=== PATIENT | male | born 1970 | race Caucasian/White ===

== ENCOUNTER 2017-03-29 07:05 | Observation (INO) | payer BC, OTHER ==
[~2017-03-29] VITALS: Ht 172.7 cm; Wt 103.7 kg
[2017-03-29 07:16] LABS: BASOPHILS % (AUTO) 0 % (0-10); EOSINOPHILS # (AUTO) 0.1 10^3/uL (0.0-0.3); EOSINOPHILS % (AUTO) 1 % (0-10); LYMPHOCYTES # (AUTO) 2.2 X 10^3 (1.0-4.0); LYMPHOCYTES % (AUTO) 23 % (12-44); MEAN CORPUSCULAR HEMOGLOBIN 31 PG (25-34); MEAN CORPUSCULAR HGB CONC 35 G/DL (32-36); MEAN CORPUSCULAR VOLUME 90 FL (80-99); MEAN PLATELET VOLUME 10.9 FL (7.4-10.4); MONOCYTES # (AUTO) 1.2 X 10^3 (0.0-1.0); MONOCYTES % (AUTO) 12 % (0-12); NEUTROPHILS # (AUTO) 6.3 X 10^3 (1.8-7.8); NEUTROPHILS % (AUTO) 64 % (42-75); PLATELET COUNT 196 10^3/uL (130-400); RED BLOOD COUNT 4.64 10^6/uL (4.35-5.85); RED CELL DISTRIBUTION WIDTH 12.7 % (10.0-14.5); WHITE BLOOD COUNT 9.8 10^3/uL (4.3-11.0)
--- NOTE | 2017-03-29 07:16 | ED Chest Pain ---
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 [place] IN [place]--USED TO SEE DR. BARBOSA, BUT RECENTLY SWITCHED Allergies and Home Medications Allergies Coded Allergies: No Known Drug Allergies (Unverified , 03/29/17) Home Medications Amlodipine Besylate 5 Mg Tablet, 5 MG PO DAILY, (Reported) Lisinopril 40 Mg Tablet, 40 MG PO DAILY, (Reported) [Abilify] , (Reported) Review of Systems Constitutional: see HPI, diaphoresis (CLAMMY AND HOT), dizziness EENTM: No Symptoms Reported Respiratory: See HPI, Shortness of Air Cardiovascular: See HPI, Chest Pain, Edema, Lightheadedness, Denies Palpitations, Denies Syncope Gastrointestinal: No Symptoms Reported Genitourinary: No Symptoms Reported Musculoskeletal: no symptoms reported Skin: no symptoms reported Psychiatric/Neurological: No Symptoms Reported Endocrine: No Symptoms Reported Hematologic/Lymphatic: No Symptoms Reported Past Eillxvf-Sfgiif-Iidwab Hx Patient Social History Alcohol Use: Past History (HISTORY OF ABUSE, NONE SINCE 2006) Recreational Drug Use: Yes (METH--DENIES IV USE, OR RECENT USE) Smoking Status: Former Smoker (SMOKED 2 PPD, QUIT 09/2016, NOW CHEWS) Type Used: Cigarettes, Smokeless Tobacco Surgeries HX Surgeries: No Respiratory Hx Respiratory Disorders: No Cardiovascular Hx Cardiac Disorders: Yes Cardiac Disorders: Hypertension Neurological Hx Neurological Disorders: No Genitourinary Hx Genitourinary Disorders: No Gastrointestinal Hx Gastrointestinal Disorders: No Musculoskeletal Hx Musculoskeletal Disorders: No Endocrine Hx Endocrine Disorders: No HEENT HX ENT Disorders: No Cancer Hx Cancer: No Psychosocial Hx Psychiatric Problems: Yes Behavioral Health Disorders: Anxiety, Bipolar Integumentary HX Skin/Integumentary Disorder: No Blood Transfusions Hx Blood Disorders: No Physical Exam Vital Signs Vital Sign - Last 12Hours 03/29/17 07:05 Temp 97.2 Pulse 84 Resp 18 B/P (MAP) 144/89 Pulse Ox 98 O2 Delivery Nasal Cannula O2 Flow Rate 2.00 Capillary Refill : General Appearance: No Apparent Distress, WD/WN Neck: Full Range of Motion, Normal Inspection, Non Tender, Supple, No Carotid Bruit, No JVD Respiratory: Chest Non Tender, Normal Breath Sounds, No Accessory Muscle Use, No Respiratory Distress Cardiovascular: Regular Rate, Rhythm, No JVD, No Murmur, Normal Peripheral Pulses Gastrointestinal: Normal Bowel Sounds, No Organomegaly, No Pulsatile Mass, Non Tender, Soft Extremity: Normal Capillary Refill, Normal Range of Motion, Non Tender, No Calf Tenderness, Pedal Edema (TRACE BILATERALLY) Neurologic/Psychiatric: Alert, Oriented x3, No Motor/Sensory Deficits, Normal Mood/Affect, 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 as Tested Skin: Normal Color, Warm/Dry, Tattoos/Piercings (MULTIPLE TATTOOS) Progress/Results/Core Measures Results/Orders Lab Results Laboratory Tests Test 03/29/17 07:10 Range/Units White Blood Count 9.8 4.3-11.0 10^3/uL Red Blood Count 4.64 4.35-5.85 10^6/uL Hemoglobin 14.4 13.3-17.7 G/DL Hematocrit 42 40-54 % Mean Corpuscular Volume 90 80-99 FL Mean Corpuscular Hemoglobin 31 25-34 PG Mean Corpuscular Hemoglobin Concent 35 32-36 G/DL Red Cell Distribution Width 12.7 10.0-14.5 % Platelet Count 196 130-400 10^3/uL Mean Platelet Volume 10.9 H 7.4-10.4 FL Neutrophils (%) (Auto) 64 42-75 % Lymphocytes (%) (Auto) 23 12-44 % Monocytes (%) (Auto) 12 0-12 % Eosinophils (%) (Auto) 1 0-10 % Basophils (%) (Auto) 0 0-10 % Neutrophils # (Auto) 6.3 1.8-7.8 X 10^3 Lymphocytes # (Auto) 2.2 1.0-4.0 X 10^3 Monocytes # (Auto) 1.2 H 0.0-1.0 X 10^3 Eosinophils # (Auto) 0.1 0.0-0.3 10^3/uL Basophils # (Auto) 0.0 0.0-0.1 10^3/uL Prothrombin Time 12.8 12.2-14.7 SEC INR Comment 1.0 0.8-1.4 Activated Partial Thromboplast Time 26 24-35 SEC Sodium Level 139 135-145 MMOL/L Potassium Level 3.9 3.6-5.0 MMOL/L Chloride Level 104 98-107 MMOL/L Carbon Dioxide Level 23 21-32 MMOL/L Anion Gap 12 5-14 MMOL/L Blood Urea Nitrogen 26 H 7-18 MG/DL Creatinine 1.03 0.60-1.30 MG/DL Estimat Glomerular Filtration Rate > 60 BUN/Creatinine Ratio 25 Glucose Level 109 H 70-105 MG/DL Calcium Level 9.7 8.5-10.1 MG/DL Magnesium Level 1.9 1.8-2.4 MG/DL Total Bilirubin 0.3 0.1-1.0 MG/DL Aspartate Amino Transf (AST/SGOT) 14 5-34 U/L Alanine Aminotransferase (ALT/SGPT) 16 0-55 U/L Alkaline Phosphatase 57 40-136 U/L Total Creatine Kinase 118 30-200 U/L Creatine Kinase MB 1.1 <6.6 NG/ML Troponin I < 0.30 <0.30 NG/ML B-Type Natriuretic Peptide < 10.0 <100.0 PG/ML Total Protein 7.1 6.4-8.2 GM/DL Albumin 4.2 3.2-4.5 GM/DL Amylase Level 63 25-125 U/L Lipase 19 8-78 U/L My Orders Orders - YG GARZON DO Ekg Tracing (03/29/17 07:06) Amylase (03/29/17 07:10) Cbc With Automated Diff (03/29/17 07:10) Comprehensive Metabolic Panel (03/29/17 07:10) Creatine Kinase (03/29/17 07:10) Creatine Kinase Mb (03/29/17 07:10) Lipase (03/29/17 07:10) Partial Thromboplastin Time (03/29/17 07:10) Protime With Inr (03/29/17 07:10) Troponin I (03/29/17 07:10) Chest 1 View, Ap/Pa Only (03/29/17 07:10) O2 (03/29/17 07:10) BNP (03/29/17 07:10) Monitor-Rhythm Ecg Trace Only (03/29/17 07:10) Magnesium (03/29/17 07:10) Ct Angio Chest W (03/29/17 07:50) Iohexol Injection (Omnipaque 350 Mg/Ml 1 (03/29/17 08:15) Sodium Chloride Flush (Catheter Flush Sy (03/29/17 08:15) Ns (Ivpb) (Sodium Chloride 0.9% Ivpb Bag (03/29/17 08:15) Medications Given in ED Current Medications Medications Dose Ordered Sig/Alessia Route Start Time Stop Time Status Last Admin Dose Admin Iohexol 125 ml ONCE ONCE IV 03/29/17 08:15 03/29/17 08:16 DC 03/29/17 08:13 125 ML Sodium Chloride 10 ml NEEDED PRN IV 03/29/17 08:15 03/29/17 09:37 DC 03/29/17 08:13 10 ML Sodium Chloride 100 ml ONCE ONCE IV 03/29/17 08:15 03/29/17 08:16 DC 03/29/17 08:13 80 ML Vital Signs/I&O Vital Sign - Last 12Hours 03/29/17 03/29/17 03/29/17 07:05 07:05 07:49 Temp 97.2 Pulse 84 66 Resp 18 18 B/P (MAP) 144/89 132/84 Pulse Ox 98 98 O2 Delivery Nasal Cannula Room Air O2 Flow Rate 2.00 Progress Note : Progress Note NO SYMPTOMS DURING ER STAY. ECG Initial ECG Impression Time: 07:11 Initial ECG Rate: 80 Initial ECG Rhythm: Normal Sinus Initial ECG Impression: Nonspecific Changes (BORDERLINE INFERIOR Q WAVES) Initial ECG Comparisson: No Previous ECG Available Diagnostic Imaging Comments CXR--NO ACUTE PROCESS, PER RADIOLOGIST REPORT @ 0740 CT CHEST ANGIOGRAM--NO ACUTE PROCESS, PER RADIOLOGIST REPORT @ 0840 Reviewed: Reviewed by Me Departure Communication Progress Notes 0840--ATTEMPTING TO CONTACT DR. CARR, HOSPITALIST HEALTH ASSESSMENT AND TREATMENT TEACHER, NO ANSWER ON CELL. UNABLE TO LEAVE MESSAGE 0840--SPOKE WITH DR. COLE, [employer] ASSESSMENT AND TREATMENT TEACHER. HE WILL DO STRESS TEST TODAY ON PT. 0845/0850/0858/0910--NO ANSWER ON DR. CARR CELL 0850/0858--NO ANSWER AT HOME FOR DR. CARR 0858 TEXT MESSAGE SENT TO DR. CARR CELL PHONE. 0924--NO ANSWER ON DR. CARR CELL OR AT HOME 0925--SPOKE WITH DR. COLE AND PT CAN BE ADMITTED TO HIM. HE HAS ALREADY DISCUSSED WITH DR. HENRY, HE WILL SPEAK WITH HER AGAIN AND CALL ME BACK. 0940--SPOKE WITH DR. COLE, ADMIT TO HIM, AND HE WILL CONSULT HOSPITALIST. Impression Impression: Primary Impression: Chest pain Disposition: ADMITTED INPATIENT Condition: Improved Admissions Decision to Admit Reason: Admit from ER (General) Decision to Admit/Date: Mar 29, 2017 Time/Decision to Admit Time: 08:40 Departure-Patient Inst. Referrals: NO,LOCAL PHYSICIAN (PCP/Family) Primary Care Physician YG GARZON DO Mar 29, 2017 07:16
[2017-03-29 07:27] LABS: PROTHROMBIN TIME PATIENT 12.8 SEC (12.2-14.7)
--- NOTE | 2017-03-29 07:36 | Diagnostic Imaging Report ---
INDICATION: Chest pain since this morning. History of anxiety. EXAMINATION: Chest 03/29/17 FINDINGS: The heart is normal in size. Pulmonary vasculature is unremarkable. There are no infiltrates or effusions. No pneumothorax. IMPRESSION: 1. No acute process. Dictated by: Dictated on workstation # [id number]
[2017-03-29 07:38] LABS: ALANINE AMINOTRANSFERASE 16 U/L (0-55); ALBUMIN 4.2 GM/DL (3.2-4.5); AMYLASE 63 U/L (25-125); ANION GAP 12 MMOL/L (5-14); ASPARTATE AMINO TRANSFERASE 14 U/L (5-34); BILIRUBIN,TOTAL 0.3 MG/DL (0.1-1.0); BLOOD UREA NITROGEN 26 MG/DL (7-18); BUN/CREATININE RATIO 25; CALCIUM 9.7 MG/DL (8.5-10.1); CARBON DIOXIDE 23 MMOL/L (21-32); CHLORIDE 104 MMOL/L (98-107); CREATINE KINASE 118 U/L (30-200); CREATININE SERUM 1.03 MG/DL (0.60-1.30); GFR ESTIMATED > 60; GLUCOSE 109 MG/DL (70-105); LIPASE 19 U/L (8-78); MAGNESIUM 1.9 MG/DL (1.8-2.4); POTASSIUM 3.9 MMOL/L (3.6-5.0); SODIUM 139 MMOL/L (135-145); TOTAL PROTEIN 7.1 GM/DL (6.4-8.2)
[2017-03-29] MEDS ORDERED: AMLO5TAB4 PO (07:39)
[2017-03-29] MEDS ORDERED: LISI40TA PO (07:39)
[2017-03-29] MEDS ORDERED: ABILIFY (07:41)
[2017-03-29 07:44] LABS: TROPONIN I < 0.30 NG/ML (<0.30)
[2017-03-29 07:49] VITALS: BP 132/84
[2017-03-29] MEDS ORDERED: CATHETER FLUSH 10 ML SYR IV PRN ×2 (08:15→09:45)
[2017-03-29] MEDS ORDERED: NS 100 ML (IVPB) BAG IV ONE (08:15)
[2017-03-29] MEDS ORDERED: IOHEXOL 350 MG/ML 150 ML (OMNIPAQUE 350) VIAL IV ONE (08:15)
--- NOTE | 2017-03-29 08:36 | Diagnostic Imaging Report ---
PROCEDURE: CT angiography of the chest with contrast. TECHNIQUE: Multiple contiguous axial images were obtained through the chest after uneventful bolus administration of intravenous contrast. Reconstructed CTA MIP acquisitions were also performed. INDICATION: Left-sided chest pain The aorta appears normal with no evidence of aneurysm or dissection. There are no pulmonary emboli. Lungs are clear. There are no effusions or pneumothoraces. IMPRESSION: Negative CTA chest. Dictated by: Dictated on workstation # [id number]
[2017-03-29 09:30] VITALS: BP 129/84
[2017-03-29 09:45] VITALS: BP 128/89
[2017-03-29] MEDS ORDERED: morphine INJ 4 MG/ML 1 ML (VIAL/SYRINGE) IV PRN (09:45)
[2017-03-29] MEDS ORDERED: NITROGLYCERIN SUBLINGUAL 0.4 MG TAB (NITROSTAT) SL PRN (09:45)
[2017-03-29] MEDS ORDERED: 1/2 NS IV SOLUTION 1,000 ML IV SCH (09:45)
[2017-03-29 10:00] VITALS: BP 141/89
[2017-03-29] MEDS ORDERED: CHOL400C9 PO (10:02)
[2017-03-29] MEDS ORDERED: ARIP5TAB12 PO (10:02)
[2017-03-29] MEDS ORDERED: DIVA-21 PO ×2 (10:02)
[2017-03-29] MEDS ORDERED: AMLO10TA2 PO (10:19)
[2017-03-29] MEDS ORDERED: ARIP10TA17 PO (10:19)
--- NOTE | 2017-03-29 11:13 | Short Stay Summary ---
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 Lightheaded at no syncope, some shortness of breath. Patient drove to [place] then parked his car and after discussing with his employer he called 911 and he was brought to the hospital, chest pain relieved after 2 sublingual nitroglycerin, and was fairly anxious. Admitted having similar episodes in the past for which she had a workup done about a year ago including stress test which was negative. He denied any palpitation. No syncope. EKG did not show any acute changes, Cardec enzymes first set was negative. Date of Admission Mar 29, 2017 at 08:40 Date of Discharge March 29, 2017 Time Seen by Provider: 10:15 Attending Physician Bryant Gilmore MD Admitting Physician Sofia,Local Physician Consult Allergies and Home Medications Allergies Coded Allergies: No Known Drug Allergies (Unverified , 03/29/17) Home Medications Amlodipine Besylate 10 Mg Tablet, 10 MG PO HS, (Reported) Aripiprazole 10 Mg Tablet, 5 MG PO HS, (Reported) TAKES 1/2 (10MG) TABLET Cholecalciferol (Vitamin D3) 400 Unit Capsule, 1,200 UNIT PO HS, (Reported) TAKES 3 (400 UNIT) CAPSULES Divalproex Sodium 500 Mg Tab.er.24h, 1,000 MG PO DAILY, (Reported) TAKES 2 (500MG) TABLETS Divalproex Sodium 500 Mg Tab.er.24h, 2,000 MG PO HS, (Reported) TAKES 4 (500MG) TABLETS Lisinopril 40 Mg Tablet, 40 MG PO HS, (Reported) Past Qkfrduf-Mplcqx-Zgnauy Hx Patient Social History Marrital Status: Employed/Student: employed Alcohol Use: Denies Use Recreational Drug Use: No (History of Drug abuse) Smoking Status: Former Smoker Type Used: Cigarettes, Smokeless Tobacco Physical Abuse Screen: No Sexual Abuse: No Recent Foreign Travel: No Contact w/other who traveled: No Recent Hopitalizations: No Recent Infectious Disease Expo: No Seasonal Allergies Seasonal Allergies: Yes Surgeries HX Surgeries: No Respiratory Hx Respiratory Disorders: No Cardiovascular Hx Cardiovascular Disorders: Yes Cardiac Disorders: Hypertension Neurological Hx Neurological Disorders: No Genitourinary Hx Genitourinary Disorders: No Gastrointestinal Hx Gastrointestinal Disorders: No Musculoskeletal Hx Musculoskeletal Disorders: No Endocrine Hx Endocrine Disorders: No HEENT HX ENT Disorders: No Loss of Vision: Denies Cancer Hx Cancer: No Psychosocial Hx Psychiatric Problems: Yes Behavioral Health Disorders: Anxiety, Bipolar Integumentary HX Skin/Integumentary Disorder: No Blood Transfusions Hx Blood Disorders: No Adverse Reaction to a Blood Tr: No Family Medical History Other Significan Family Hx: Family history is noncontributory Constitutional: see HPI, dizziness EENTM: no symptoms reported, see HPI Respiratory: see HPI, No cough, No dyspnea on exertion, No hemoptysis, No orthopnea, No phlegm, short of breath, No stridor, No wheezing, No other Cardiovascular: see HPI, chest pain, No edema, No Hx of Intervention, No palpitations, No syncope, No vascular heart diseas, No other Gastrointestinal: no symptoms reported, see HPI Genitourinary: no symptoms reported, see HPI Musculoskeletal: no symptoms reported, see HPI Skin: no symptoms reported, see HPI Psychiatric/Neurological: See HPI, Anxiety, Depressed Physical Exam Vital Signs Vital Sign - Last 12Hours 03/29/17 07:05 Temp 97.2 Pulse 84 Resp 18 B/P (MAP) 144/89 Pulse Ox 98 O2 Delivery Nasal Cannula O2 Flow Rate 2.00 Capillary Refill : Less Than 3 Seconds General Appearance: No Apparent Distress, WD/WN Eyes: Bilateral Eye EOMI, Bilateral Eye Normal Inspection, Bilateral Eye PERRL HEENT: PERRL/EOMI, TMs Normal, Normal ENT Inspection, Pharynx Normal Neck: Full Range of Motion, Normal Inspection, Non Tender, Supple, Carotid Bruit Respiratory: Chest Non Tender, Lungs Clear, Normal Breath Sounds, No Accessory Muscle Use, No Respiratory Distress Cardiovascular: Regular Rate, Rhythm, No Edema, No Gallop, No JVD, No Murmur, Normal Peripheral Pulses Gastrointestinal: Normal Bowel Sounds, No Organomegaly, No Pulsatile Mass, Non Tender, Soft Back: Normal Inspection, No CVA Tenderness, No Vertebral Tenderness Extremity: Normal Capillary Refill, Normal Inspection, Normal Range of Motion, Non Tender, No Calf Tenderness, No Pedal Edema Neurologic/Psychiatric: Alert, Oriented x3, No Motor/Sensory Deficits, Normal Mood/Affect Skin: Normal Color, Warm/Dry Lymphatic: No Adenopathy Clinical Quality Measures AMI/AHF: ASA po Prior to arrival: Yes (BY EMS) DVT/VTE Risk/Contraindication: Risk Factor Score Per Nursin RFS Level Per Nursing on Admit: 3=High Short Stay Diagnosis Discharge Diagnosis-Short Stay Admission Diagnosis: Chest pain nonspecific etiology Dizziness Anxiety Hypertension Final Discharge Diagnosis: Hypertension Anterior chest wall pain Anxiety Conclusion Labs Laboratory Tests 03/29/17 07:10: White Blood Count 9.8, Red Blood Count 4.64, Hemoglobin 14.4, Hematocrit 42, Mean Corpuscular Volume 90, Mean Corpuscular Hemoglobin 31, Mean Corpuscular Hemoglobin Concent 35, Red Cell Distribution Width 12.7, Platelet Count 196, Mean Platelet Volume 10.9H, Neutrophils (%) (Auto) 64, Lymphocytes (%) (Auto) 23 , Monocytes (%) (Auto) 12, Eosinophils (%) (Auto) 1, Basophils (%) (Auto) 0, Neutrophils # (Auto) 6.3, Lymphocytes # (Auto) 2.2, Monocytes # (Auto) 1.2H, Eosinophils # (Auto) 0.1, Basophils # (Auto) 0.0, Prothrombin Time 12.8, INR Comment 1.0, Activated Partial Thromboplast Time 26, Sodium Level 139, Potassium Level 3.9, Chloride Level 104, Carbon Dioxide Level 23, Anion Gap 12, Blood Urea Nitrogen 26H, Creatinine 1.03, Estimat Glomerular Filtration Rate > 60, BUN/Creatinine Ratio 25, Glucose Level 109H, Calcium Level 9.7, Magnesium Level 1.9, Total Bilirubin 0.3, Aspartate Amino Transf (AST/SGOT) 14, Alanine Aminotransferase (ALT/SGPT) 16, Alkaline Phosphatase 57, Total Creatine Kinase 118, Creatine Kinase MB 1.1, Troponin I < 0.30, B-Type Natriuretic Peptide < 10.0, Total Protein 7.1, Albumin 4.2, Amylase Level 63, Lipase 19 Conclusion/Plan Chest pain nonspecific urology, cardiac enzymes were negative, EKG did not show any acute changes, patient underwent exercise stress echo he was able to exercise for 9 minutes on standard Bandar protocol, minimal nondiagnostic EKG changes, echocardiographic images were normal. No ischemic changes. Planning to discharge her home, patient was reassured Hypertension, restart home medication, instructed to continue on current medication monitor as an outpatient next Anxiety, followed by primary care physician Bipolar disorder followed by primary care physician History of tobaccoism, stopped smoking about 6 months ago, encouraged to continue smoking cessation FRANCISCA COLE MD Mar 29, 2017 11:13
[2017-03-29 12:05] VITALS: BP 141/89
[2017-03-29] MEDS ORDERED: lisINopril 20 MG (ZESTRIL) TAB PO SCH (21:00)
[2017-03-29] MEDS ORDERED: amLODIPine 10 MG (NORVASC) TAB PO SCH (21:00)
[2017-03-29] MEDS ORDERED: ARIPIPRAZOLE 10 MG (ABILIFY) TAB PO SCH (21:00)
--- NOTE | 2017-03-30 08:29 | STRESS TEST ---
DATE OF SERVICE: 03/29/2017 EXERCISE STRESS ECHOCARDIOGRAM REPORT. INDICATION: Chest pain. FINDINGS: Baseline heart rate is 65, baseline blood pressure 140/60. Baseline EKG is sinus rhythm with no ischemic changes. SUMMARY: The patient started exercising with a baseline heart rate, blood pressure and EKG mentioned above, patient was able to exercise for a total of 9 minutes on standard Bandar protocol, achieving maximum heart rate of 166, which is 94% of maximum expected heart rate. With peak exercise level, EKG was showing minimal nondiagnostic changes. Echocardiographic images were normal with normal left ventricular size with normal contractility with no ischemic changes. Blood pressure at peak was 162/59. CONCLUSION: 1. Good exercise tolerance a total of 9 minutes on standard Bandar protocol, total of 10.3 METS achieving 94% of maximum expected heart rate. 2. Appropriate heart rate and blood pressure response to exercise returned to baseline during recovery. 3. Negative exercise stress test by EKG and echocardiographic images with no ischemic changes. Job ID: [id number] DocumentID: [id number] Dictated Date: 03/29/2017 11:47:43 Corpsman Date: 03/29/2017 12:21:24 Dictated By: FRANCISCA COLE MD
[2017-03-30] MEDS ORDERED: ASPIRIN E.C. 325 MG (ECOTRIN) TABLET PO SCH (09:00)
== END 2017-03-29 11:14 | disposition home or self-care (01) ==
LOC: ER 07:07 → ICU 08:40 → UNDOADMOB 08:40 → ICU 09:30 → UNDODISOB 12:05
PROVIDERS: ADMIT Internal Medicine Cardiovascular Disease; ATTEND Internal Medicine
DX: R07.9 Chest pain, unspecified (principal); I10 Essential (primary) hypertension; F17.220 Nicotine dependence, chewing tobacco, uncomplicated; Z79.899 Other long term (current) drug therapy
CPT/HCPCS: 36415; 71010; 71275; 80053; 82150; 82550; 82553; 83690; 83735; 83880; 84484; 85025; 85610; 85730; 93005; 93041; 93351